=== PATIENT | male | born 1995 | race Caucasian/White ===

== ENCOUNTER 2021-06-23 22:46 | Emergency (ER) | payer BC ==
[~2021-06-23] VITALS: Ht 175.3 cm; Wt 127.0 kg
[2021-06-24 00:10] VITALS: BP 112/70
== END 2021-06-24 00:32 | disposition home or self-care (01) ==
LOC: ER 22:48
DX: S49.81XA Other specified injuries of right shoulder and upper arm, initial encounter (principal); E89.0 Postprocedural hypothyroidism; X50.9XXA Other and unspecified overexertion or strenuous movements or postures, initial encounter; Y93.89 Activity, other specified; Y92.89 Other specified places as the place of occurrence of the external cause; Y99.8 Other external cause status